=== PATIENT | male | born 1985 | race American Indian/Alaskan Native ===

== ENCOUNTER 2017-02-06 00:22 | Emergency (ER) | payer OTHER ==
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
[2017-02-06] MEDS ORDERED: NORCO 10/325 PO ONE (04:21)
[2017-02-06 04:40] VITALS: BP 124/73
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
== END 2017-02-06 06:01 | disposition home or self-care (01) ==
LOC: ED 00:22
DX: S16.1XXA Strain of muscle, fascia and tendon at neck level, initial encounter (principal); S39.012A Strain of muscle, fascia and tendon of lower back, initial encounter; S40.012A Contusion of left shoulder, initial encounter; F17.200 Nicotine dependence, unspecified, uncomplicated; V49.49XA Driver injured in collision with other motor vehicles in traffic accident, initial encounter; Y93.9 Activity, unspecified; Y92.9 Unspecified place or not applicable; Y99.9 Unspecified external cause status
CPT/HCPCS: 99283

== ENCOUNTER 2018-08-04 01:20 | Emergency (ER) | payer SELFPAY ==
--- NOTE | 2018-08-04 01:53 | Emergency Department Report ---
HPI - General Chief Complaint: Overdose Time Seen by Provider: 08/04/18 01:29 - HPI HPI: 32-year-old male presents to the emergency department via EMS and PD with complaint of overdose of muscle relaxers and suicidal ideations. The patient allegedly went into his aunt and uncles room stating that he had taken a bunch of pills and that he wanted to kill himself. The patient did endorse suicidal ideations to the state [place] police officer, as well as to myself. The patient is not very forthcoming with information but does answer some questions, mostly with nods and shaking of his head. He says that it has something to do with his family but also appears to say that it has something to do with finances. Family did come bedside and says that the patient found out that he had some type of a pulmonary nodule or mass a few months ago and that also caused some stress on him. Otherwise there is no past medical history. It Is unknown exactly how many pills that he took. The prescription is from March of this year and had a total of 30 pills. 9 pills were found on the dresser. ED Past Medical Hx - Past Medical History Previous Medical History?: Yes Additional medical history: Chronic back pain. Nodule on lung? - Surgical History Past Surgical History?: Yes Additional Surgical History: Rt foot Toe - Social History Smoking Status: Never Smoker Substance Use Type: Alcohol - Medications Home Medications: Home Medications Medication Instructions Recorded Confirmed Last Taken Type Baclofen 20 mg PO BID #20 tablet 02/06/17 Unknown Rx Diclofenac Sodium 75 mg PO BID #20 tablet. 02/06/17 Unknown Rx traMADol [Ultram] 50 mg PO Q6HR PRN #12 tablet 02/06/17 Unknown Rx ED Review of Systems ROS: Stated complaint: SUICIDAL Other details as noted in HPI Comment: Unobtainable due to pts medical conditions Constitutional: denies: chills, fever Eyes: denies: eye pain, eye discharge, vision change ENT: denies: ear pain, throat pain Respiratory: denies: cough, shortness of breath, wheezing Cardiovascular: denies: chest pain, palpitations Gastrointestinal: denies: abdominal pain, nausea, diarrhea Genitourinary: denies: urgency, dysuria Musculoskeletal: denies: back pain, joint swelling, arthralgia Skin: denies: rash, lesions Neurological: denies: headache, numbness Psychiatric: depression, suicidal thoughts. denies: homicidal thoughts Physical Exam - Physical Exam Vital Signs: Vital Signs 08/04/18 01:34 Temperature 98.5 F Pulse Rate 92 H Respiratory 24 Rate Blood Pressure 121/85 O2 Sat by Pulse 99 Oximetry Physical Exam: GENERAL: The patient is well-developed well-nourished. HENT: Normocephalic. Atraumatic. Patient has moist mucous membranes. EYES: Extraocular motions are intact. Pupils equal reactive to light bilaterally. NECK: Supple. Trachea is midline. CHEST/LUNGS: Clear to auscultation. There is no respiratory distress noted. HEART/CARDIOVASCULAR: Regular. There is no tachycardia. There is no murmur. ABDOMEN: Abdomen is soft, nontender. Patient has normal bowel sounds. There is no abdominal distention. SKIN: Skin is warm and dry. NEURO: Patient is fatigued but is easily arousable and once awake is alert and oriented. The patient is cooperative. The patient has no focal neurologic deficits. The patient has normal speech. MUSCULOSKELETAL: There is no tenderness or deformity. There is no limitation range of motion. There is no evidence of acute injury. PSYCH: Patient has a flat affect. He is not very forthcoming with information. ED Course Vital Signs 08/04/18 01:34 Temperature 98.5 F Pulse Rate 92 H Respiratory 24 Rate Blood Pressure 121/85 O2 Sat by Pulse 99 Oximetry ED Medical Decision Making - Lab Data Result diagrams: 08/04/18 01:48 08/04/18 01:48 - EKG Data -: EKG Interpreted by [facility] EKG shows normal: sinus rhythm, axis, intervals, QRS complexes, ST-T waves Rate: normal - EKG Data When compared to previous EKG there are: previous EKG unavailable Interpretation: normal EKG - Radiology Data Radiology results: image reviewed interpreted by me: Chest x-ray does not show any acute process. There are no pleural effusions, obvious pneumonia and there is no pneumothorax. - Medical Decision Making Patient presents after attempting to harm himself by overdosing on Soma. He appears fatigued but is easily arousable. Once awake he is oriented and can follow commands. Labs have been mostly unremarkable. Vital signs stable throughout his ED course. A chest x-ray was done to look into the patient's claim of some type of nodule or mass in the lungs but it appears mostly unremarkable. Patient has been reevaluated multiple times for multiple hours and has remained stable throughout his ED course. He appears medically clear for psychiatric placement. - Differential Diagnosis depression, bipolar disorder, substance abuse Critical Care Time: No Critical care attestation.: If time is entered above; I have spent that time in minutes in the direct care of this critically ill patient, excluding procedure time. ED Disposition Clinical Impression: Suicidal ideations, Suicide attempt Depression Qualifiers: Depression Type: unspecified Qualified Code(s): F32.9 - Major depressive disorder, single episode, unspecified Overdose of muscle relaxant Qualifiers: Encounter type: initial encounter Injury intent: intentional self-harm Qualified Code(s): T48.202A - Poisoning by unspecified drugs acting on muscles, intentional self-harm, initial encounter Disposition: [id number]/[id number] PSY HOSP/PSY UNIT Is pt being admited?: No Condition: Stable Referrals: PRIMARY CARE, [Primary Care Provider] - 3-5 Days Time of Disposition: 06:05
--- NOTE | 2018-08-04 02:08 | XRay Report ---
FINAL REPORT EXAM: XR CHEST 1V AP HISTORY: Lung Nodule TECHNIQUE: Single, portable chest x-ray. PRIORS: None. FINDINGS: Cardiac and mediastinal silhouette within normal limits. Lungs are normally expanded, with possible small and calcified granuloma projected over left lower lung. No significant vascular congestion. No focal consolidation or apparent pneumothorax. Mild dextroconvex curvature of thoracic spine. IMPRESSION: 1. No acute findings.
[2018-08-04] MEDS ORDERED: ACTIDOSE-AQUA PO ONE (02:17)
[2018-08-04] MEDS ORDERED: NACL 0.9% 1000 ML 1,000 ML IV ONE ×2 (02:18→04:21)
[2018-08-04 02:23] LABS: Bilirubin,Urine NEG (Negative); Blood,Urine NEG (Negative); Color,Urine Yellow (Yellow); Hyaline Casts,Urine 1 /LPF; Mucus,Urine 3+ /HPF; Protein,Urine <15 mg/dL mg/dL (Negative); Urobilinogen,Urine < 2.0 mg/dL (<2.0)
[2018-08-04 02:30] LABS: Amphetamine Screen,Urine PRESUMPTIVE NEGATIVE; Benzodiazepines Screen,Urine PRESUMPTIVE NEGATIVE; Cannabinoid Screen,Urine PRESUMPTIVE NEGATIVE; Cocaine Screen,Urine PRESUMPTIVE NEGATIVE; Methadone Screen,Urine PRESUMPTIVE NEGATIVE; Opiate Screen,Urine PRESUMPTIVE NEGATIVE
[2018-08-04 02:34] LABS: Hematocrit 43.4 % (35.5-45.6); Hemoglobin 14.5 gm/dl (11.8-15.2); Mean Corpuscular HGB Conc 33 % (32-34); Mean Corpuscular Hemoglobin 31 pg (28-32); Mean Corpuscular Volume 93 fl (84-94); Platelet Count 182 K/mm3 (140-440); Red Blood Count 4.67 M/mm3 (3.65-5.03); Red Cell Distribution Width 13.2 % (13.2-15.2)
[2018-08-04 02:43] LABS: Alanine Aminotransferase 13 units/L (7-56); Albumin 4.1 g/dL (3.9-5); BUN/Creatinine Ratio 11; Blood Urea Nitrogen 11 mg/dL (9-20); Calcium 9.2 mg/dL (8.4-10.2); Hemolysis Index 9
[2018-08-04] MEDS ORDERED: K-DUR PO ONE (02:47)
[2018-08-04 06:53] LABS: Total Cells Counted 100
[2018-08-04 06:54] LABS: Platelet Estimate Consistent w Auto
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
--- NOTE | 2018-08-05 15:54 | Progress Note ---
Subjective - Reason for Consult Consult date: 08/05/18 Reason for consult: Psychiatric Follow-up Evaluation - Chief Complaint Chief complaint: "I'm ready to go home" Patient is a 32-year-old male that presents to the emergency department via EMS and PD with complaint of overdose of muscle relaxers. Today patient presents anxious and irritable during the assessment. Patient states, " I'm ready to go home. I'm here because I overdosed on my muscle relaxers. I was not trying to kill myself. I need to get out of here because I have to go to work. I'm not trying to lose my job." Currently, patient denies SI/HI, A/VH, and delusions. Mental Status Exam - Vital signs Last Vital Signs Temp 98.6 F 08/05/18 12:00 Pulse 82 08/05/18 12:00 Resp 16 08/05/18 12:00 BP 118/82 08/05/18 12:00 Pulse Ox 100 08/05/18 12:00 - Exam Narrative exam: Mental Status Exam General Appearance: Causally Dressed-hospital gown Eye Contact: Intermittent Orientation: Alert and oriented x 4 ( person, place, time, and situation) Attitude/Behavior: Cooperative, evasive Sensorium: Distracted Psychomotor & Musculoskeletal Activity: Ambulatory Mood: "Ready to go home." Anxious and irritable. Affect: Congruent with mood Speech/Language: Normal rate and tone Thought Processes: Organized, circumstantial, perseverations Thought Content: Reality oriented; patient denies delusions Perception: WNL-patient denies A/V/T hallucinations Concentration/Attention: Impaired Suicidal Ideations/Plan: Patient denies Homicidal Ideations/Plan: Patient denies Judgment: Variable Insight: Variable Assessment and Plan Impression: Intentional vs unintentional overdose. Today the patient is anxious and irritable during the assessment. Patient is demanding discharge. He denies SI/HI, A/VH, and delusions. DDx: R/O Mood DO Recommendation/Plan: 1. Continue 1013 and gather collateral information to help determine treatment and proper disposition. 2. Will continue to monitor mood, sleep, appetite, and compliance.
[2018-08-05 19:51] VITALS: BP 126/75
--- NOTE | 2018-08-06 15:47 | Progress Note ---
Subjective - Reason for Consult Consult date: 08/06/18 Reason for consult: Psychiatry Follow-up - Chief Complaint Chief complaint: "I never wanted to kill myself" 32-year-old male presents to the emergency department via EMS and PD with complaint of overdose of muscle relaxers and suicidal ideations. Today the patient is calm and cooperative during the assessment. He stated that he ran out of pain medications and took several muscles relaxers to lessen his back pain from an injury at work. He stated that he made a terrible mistake by taking the muscle relaxer pills. Per collateral information from his uncle Eros Mendoza at [phone], he stated that the patient never endorsed SI's to him. He confirmed that the patient took the pills to lessen his back pain. He denies that the patient was trying to kill himself. He denies that the patient has a mental health dx. Mr Mendoza feels safe for the patient to be discharged. The patient denies SI/HI's and AVH's. Mental Status Exam - Vital signs Last Vital Signs Temp 99.0 F 08/05/18 19:50 Pulse 80 08/05/18 19:50 Resp 18 08/05/18 19:50 BP 126/75 08/05/18 19:50 Pulse Ox 100 08/05/18 19:30 - Exam Narrative exam: MSE: Appearance: calm, cooperative Behavior: regular eye contact Speech: regular rate and tone Mood: "okay" Affect: congruent to mood Thought Process: linear Thought Content: denies SI/HI's and AVH's Motor Activity: ambulatory Cognition: A/O x 3 Insight: appropriate Judgment: appropriate Assessment and Plan Impression: Unintentional overdose. Today the patient is calm and cooperative during the assessment. The patient is no threat to self. DDx: R/O Mood DO I. This screening and assessment is based on information collected from the following sources: II. SUICIDE RISK SCREENING (within last 30 days): A.) Suicidal thoughts/behaviors: No SUICIDE RISK ASSESSMENT III. FACTORS THAT INCREASE RISK: A.) Demographic and Substance Use Factors: None B.) Current/Recent Factors (within past 3 months): Psychosocial/Environmental Factors: None Physical Illness: None Cognitive/Psychological Factors: None C.) Historical Factors: None D.) Diagnostic/Symptom/Treatment Factors: None E.) Acute Risk Factor Severity (DESC; MILD/MOD/SEVERE): N/A Other factors for this individual that increase risk: None IV. FACTORS THAT DECREASE RISK: Resilience/Protective Factors: N/A Other factors for this individual that decrease risk: N/A V. Clinician's Formulation of Risk and Determination of level of Care: This is a 32 year-old black male who ingested several muscle relaxer pills prior to his arrival to the ER. He stated that he wanted to relieve his back pain and get sleep. He acknowledged that he should have not ingested the pills because his actions was unsafe. He stated that it was a better way to handle the situation. The patient is not impaired by substance. He is able to take care of her ADLs and is not at imminent risk of harm to self or others. Consequently, it is the opinion of the treatment team that the patient is at low risk of suicide and does not meet criteria to continue an involuntary psychiatric hold. Estimation of Imminent Risk: Low due to the above explanation. Determination of Level of Care based on Suicide Risk: N/A . Plan and Interventions based on Suicide Risk: There is no risk for suicide. This was an unintentional overdose. VII. Discharge/After Hours Support Plan: N/A Recommendation/Plan: Rescind 1013. The patient was educated on taking medications as prescribed.
--- NOTE | 2018-08-06 16:33 | Emergency Department Report ---
HPI - General Chief Complaint: Overdose Time Seen by Provider: 08/04/18 01:29 - HPI HPI: Patient was seen by the psychiatric nurse practitioner Mr Donta West this morning. He recommend discharging the patient home. Patient denies being suicidal. He said he was taking the medication for his back pain and he never intentionally took the medication to kill himself. Based on the recommendation of the psychiatric team, I will discharge patient home to follow up with his primary doctor. Patient has no medical complaint at this time. He denies ever saying he was suicidal. He is currently not suicidal or homicidal. ED Past Medical Hx - Past Medical History Previous Medical History?: Yes Additional medical history: Chronic back pain. Nodule on lung? - Surgical History Past Surgical History?: Yes Additional Surgical History: Rt foot Toe - Social History Smoking Status: Never Smoker Substance Use Type: Alcohol - Medications Home Medications: Home Medications Medication Instructions Recorded Confirmed Last Taken Type Baclofen 20 mg PO BID #20 tablet 02/06/17 Unknown Rx Diclofenac Sodium 75 mg PO BID #20 tablet. 02/06/17 Unknown Rx traMADol [Ultram] 50 mg PO Q6HR PRN #12 tablet 02/06/17 Unknown Rx ED Review of Systems ROS: Stated complaint: SUICIDAL Other details as noted in HPI Constitutional: denies: chills, fever Eyes: denies: eye pain, eye discharge, vision change ENT: denies: ear pain, throat pain Respiratory: denies: cough, shortness of breath, wheezing Cardiovascular: denies: chest pain, palpitations Gastrointestinal: denies: abdominal pain, nausea, diarrhea Genitourinary: denies: urgency, dysuria Musculoskeletal: denies: back pain, joint swelling, arthralgia Skin: denies: rash, lesions Neurological: denies: headache, numbness Psychiatric: depression, suicidal thoughts. denies: homicidal thoughts Physical Exam - Physical Exam Vital Signs: Vital Signs 08/04/18 08/04/18 08/04/18 01:33 01:34 01:45 Temperature 98.5 F Pulse Rate 91 H 92 H 90 Respiratory 24 24 26 H Rate Blood Pressure 121/85 121/87 Blood Pressure [Left] O2 Sat by Pulse 99 99 100 Oximetry 08/04/18 08/04/18 08/04/18 01:51 02:00 02:30 Temperature 98.5 F Pulse Rate 92 H 89 78 Respiratory 21 10 L 20 Rate Blood Pressure 119/84 101/66 Blood Pressure 121/85 [Left] O2 Sat by Pulse 99 100 98 Oximetry 08/04/18 08/04/18 08/04/18 03:00 03:30 04:00 Temperature Pulse Rate 77 70 Respiratory 20 21 Rate Blood Pressure 107/67 104/60 105/67 Blood Pressure [Left] O2 Sat by Pulse 98 98 98 Oximetry 08/04/18 08/04/18 08/04/18 04:30 05:00 05:30 Temperature Pulse Rate 68 73 71 Respiratory 21 21 21 Rate Blood Pressure 109/70 109/72 111/74 Blood Pressure [Left] O2 Sat by Pulse 100 99 99 Oximetry 08/04/18 08/04/18 08/04/18 06:00 06:30 07:01 Temperature Pulse Rate 69 67 92 H Respiratory 16 21 11 L Rate Blood Pressure 105/66 93/54 108/62 Blood Pressure [Left] O2 Sat by Pulse 99 100 100 Oximetry 08/04/18 08/04/18 08/04/18 07:31 07:32 08:00 Temperature 97.5 F L Pulse Rate 77 77 80 Respiratory 10 L 12 25 H Rate Blood Pressure 93/54 130/88 Blood Pressure 108/62 [Left] O2 Sat by Pulse 100 100 100 Oximetry 08/04/18 08/04/18 08/04/18 08:30 09:00 09:30 Temperature Pulse Rate 81 66 67 Respiratory 24 22 20 Rate Blood Pressure 114/76 119/78 120/79 Blood Pressure [Left] O2 Sat by Pulse 99 98 99 Oximetry 08/04/18 08/04/18 08/04/18 10:00 10:30 11:00 Temperature Pulse Rate 72 94 H 56 L Respiratory 19 22 16 Rate Blood Pressure 107/73 122/67 112/73 Blood Pressure [Left] O2 Sat by Pulse 100 100 100 Oximetry 08/04/18 08/04/18 08/04/18 11:31 12:00 12:31 Temperature Pulse Rate 71 64 92 H Respiratory 20 17 12 Rate Blood Pressure 112/83 127/82 122/51 Blood Pressure [Left] O2 Sat by Pulse 100 100 100 Oximetry 08/04/18 08/04/18 08/04/18 13:01 13:30 14:00 Temperature Pulse Rate 66 73 78 Respiratory 18 20 20 Rate Blood Pressure 106/59 113/76 101/69 Blood Pressure [Left] O2 Sat by Pulse 100 100 94 Oximetry 08/04/18 08/04/18 08/04/18 14:31 15:00 15:31 Temperature Pulse Rate 84 65 81 Respiratory 13 9 L 19 Rate Blood Pressure 131/76 120/81 120/81 Blood Pressure [Left] O2 Sat by Pulse 99 96 98 Oximetry 08/04/18 08/04/18 08/04/18 16:00 16:31 17:01 Temperature Pulse Rate 86 81 70 Respiratory 13 20 18 Rate Blood Pressure 120/77 120/77 142/86 Blood Pressure [Left] O2 Sat by Pulse 63 L 100 Oximetry 08/04/18 08/05/18 08/05/18 19:20 05:48 12:00 Temperature 97.1 F L 98 F 98.6 F Pulse Rate 71 75 82 Respiratory 18 18 16 Rate Blood Pressure Blood Pressure 112/57 121/58 118/82 [Left] O2 Sat by Pulse 99 99 100 Oximetry 08/05/18 08/05/18 19:30 19:50 Temperature 99.0 F Pulse Rate 80 Respiratory 18 18 Rate Blood Pressure Blood Pressure 126/75 [Left] O2 Sat by Pulse 100 Oximetry ED Course Vital Signs 08/04/18 08/04/18 08/04/18 01:33 01:34 01:45 Temperature 98.5 F Pulse Rate 91 H 92 H 90 Respiratory 24 24 26 H Rate Blood Pressure 121/85 121/87 Blood Pressure [Left] O2 Sat by Pulse 99 99 100 Oximetry 08/04/18 08/04/18 08/04/18 01:51 02:00 02:30 Temperature 98.5 F Pulse Rate 92 H 89 78 Respiratory 21 10 L 20 Rate Blood Pressure 119/84 101/66 Blood Pressure 121/85 [Left] O2 Sat by Pulse 99 100 98 Oximetry 08/04/18 08/04/18 08/04/18 03:00 03:30 04:00 Temperature Pulse Rate 77 70 Respiratory 20 21 Rate Blood Pressure 107/67 104/60 105/67 Blood Pressure [Left] O2 Sat by Pulse 98 98 98 Oximetry 08/04/18 08/04/18 08/04/18 04:30 05:00 05:30 Temperature Pulse Rate 68 73 71 Respiratory 21 21 21 Rate Blood Pressure 109/70 109/72 111/74 Blood Pressure [Left] O2 Sat by Pulse 100 99 99 Oximetry 08/04/18 08/04/18 08/04/18 06:00 06:30 07:01 Temperature Pulse Rate 69 67 92 H Respiratory 16 21 11 L Rate Blood Pressure 105/66 93/54 108/62 Blood Pressure [Left] O2 Sat by Pulse 99 100 100 Oximetry 08/04/18 08/04/18 08/04/18 07:31 07:32 08:00 Temperature 97.5 F L Pulse Rate 77 77 80 Respiratory 10 L 12 25 H Rate Blood Pressure 93/54 130/88 Blood Pressure 108/62 [Left] O2 Sat by Pulse 100 100 100 Oximetry 08/04/18 08/04/18 08/04/18 08:30 09:00 09:30 Temperature Pulse Rate 81 66 67 Respiratory 24 22 20 Rate Blood Pressure 114/76 119/78 120/79 Blood Pressure [Left] O2 Sat by Pulse 99 98 99 Oximetry 08/04/18 08/04/18 08/04/18 10:00 10:30 11:00 Temperature Pulse Rate 72 94 H 56 L Respiratory 19 22 16 Rate Blood Pressure 107/73 122/67 112/73 Blood Pressure [Left] O2 Sat by Pulse 100 100 100 Oximetry 08/04/18 08/04/18 08/04/18 11:31 12:00 12:31 Temperature Pulse Rate 71 64 92 H Respiratory 20 17 12 Rate Blood Pressure 112/83 127/82 122/51 Blood Pressure [Left] O2 Sat by Pulse 100 100 100 Oximetry 08/04/18 08/04/18 08/04/18 13:01 13:30 14:00 Temperature Pulse Rate 66 73 78 Respiratory 18 20 20 Rate Blood Pressure 106/59 113/76 101/69 Blood Pressure [Left] O2 Sat by Pulse 100 100 94 Oximetry 08/04/18 08/04/18 08/04/18 14:31 15:00 15:31 Temperature Pulse Rate 84 65 81 Respiratory 13 9 L 19 Rate Blood Pressure 131/76 120/81 120/81 Blood Pressure [Left] O2 Sat by Pulse 99 96 98 Oximetry 08/04/18 08/04/18 08/04/18 16:00 16:31 17:01 Temperature Pulse Rate 86 81 70 Respiratory 13 20 18 Rate Blood Pressure 120/77 120/77 142/86 Blood Pressure [Left] O2 Sat by Pulse 63 L 100 Oximetry 08/04/18 08/05/18 08/05/18 19:20 05:48 12:00 Temperature 97.1 F L 98 F 98.6 F Pulse Rate 71 75 82 Respiratory 18 18 16 Rate Blood Pressure Blood Pressure 112/57 121/58 118/82 [Left] O2 Sat by Pulse 99 99 100 Oximetry 08/05/18 08/05/18 19:30 19:50 Temperature 99.0 F Pulse Rate 80 Respiratory 18 18 Rate Blood Pressure Blood Pressure 126/75 [Left] O2 Sat by Pulse 100 Oximetry ED Medical Decision Making - Lab Data Result diagrams: 08/04/18 01:48 08/04/18 01:48 Critical care attestation.: If time is entered above; I have spent that time in minutes in the direct care of this critically ill patient, excluding procedure time. ED Disposition Clinical Impression: Accidental medication overdose Qualifiers: Encounter type: initial encounter Qualified Code(s): T50.901A - Poisoning by unspecified drugs, medicaments and biological substances, accidental ( unintentional), initial encounter Disposition: DC-01 TO HOME OR SELFCARE Is pt being admited?: No Does the pt Need Aspirin: No Condition: Stable Additional Instructions: Please follow up with her primary doctor tomorrow morning. Return to the emergency room if her condition worsens. Referrals: PRIMARY CARE, [Primary Care Provider] - 3-5 Days Forms: Work/School Release Form(ED) Time of Disposition: 16:37
== END 2018-08-06 16:49 | disposition home or self-care (01) ==
LOC: ED 01:20 → EEVIPCON 01:20 → ED 08-06 16:49
DX: T48.202A Poisoning by unspecified drugs acting on muscles, intentional self-harm, initial encounter (principal); F32.9 Major depressive disorder, single episode, unspecified; G89.29 Other chronic pain; Y92.89 Other specified places as the place of occurrence of the external cause
CPT/HCPCS: 36415; 71045; 80053; 80307; 81001; 83735; 84100; 85007; 85025; 93005; 93010; 99285; G0480; J7030; 80320; 96360; 96361